=== PATIENT | female | born 1995 | race Two or more races ===

== ENCOUNTER 2019-10-22 12:28 | Emergency (ER) | payer SELFPAY ==
[2019-10-22 14:05] LABS: BLOOD UREA NITROGEN,BUN 7 mg/dL (7.0-18.0); CARBON DIOXIDE,CO2 23.7 mmol/L (21.0-32.0); CHLORIDE,CL 103 mmol/L (98-107); GLUCOSE RANDOM 78 mg/dL (74-106); POTASSIUM,K 4.2 mmol/L (3.5-5.1); SODIUM,NA 136 mmol/L (136-145)
[2019-10-22] MEDS ORDERED: Ondansetron 4 MG/2 ML SDV IVPUSH ONE (14:47)
[2019-10-22] MEDS ORDERED: Sodium Chloride 0.9% 1,000 ML IV ONE (14:47)
--- NOTE | 2019-10-22 14:50 | EDM.PDOC ---
ED HPI GENERAL MEDICAL PROBLEM - General Chief Complaint: MEDICAL BILLER CODER Problem Stated Complaint: PAIN IN STOMACH/2MNTHS Time Seen by Provider: 10/22/19 12:31 Source of Information: Reports: Patient, Family (Her boy friend interperted for me in that she only speaks swedish.) History Limitations: Reports: Language Barrier - History of Present Illness Onset: Today Duration: Improving Location: Reports: Abdomen ( left pubic area) Severity: Mild Associated Symptoms: Reports: Nausea/Vomiting (for two to three days.) lower abdominal pain Pain Score (Numeric/FACES): 6 - Related Data Allergies Allergy/AdvReac Type Severity Reaction Status Date / Time No Known Allergies Allergy Verified 10/22/19 12:43 Home Meds: Home Meds Ondansetron [Zofran ODT] 4 mg PO Q6H PRN 5 Days #20 tab.dis 10/22/19 [Rx] Past Medical History - Past Health History Medical/Surgical History: Denies Medical/Surgical History 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 (See Below) Other MEDICAL BILLER CODER History: 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-- was from an while in [place] Social & Family History - Family History Family Medical History: Noncontributory - Tobacco Use Smoking Status *Q: Never Smoker - Recreational Drug Use Recreational Drug Use: No ED ROS GENERAL - Review of Systems Review Of Systems: See Below Constitutional: Reports: No Symptoms HEENT: Reports: No Symptoms Respiratory: Reports: No Symptoms Cardiovascular: Reports: No Symptoms Endocrine: Reports: No Symptoms GI/Abdominal: Reports: Abdominal Pain : Reports: No Symptoms, Other (but does have pressure in the pubic area.) Musculoskeletal: Reports: No Symptoms Skin: Reports: No Symptoms Neurological: Reports: No Symptoms Psychiatric: Reports: No Symptoms ED EXAM - Physical Exam Exam: See Below Exam Limited By: Language Barrier (Her boy friend did all of the talking in that she only speaks spainsh.) General Appearance: Alert, WD/WN, No Apparent Distress Eye Exam: Bilateral Eye: EOMI, Normal Inspection, PERRL Ears: Normal External Exam, Normal Canal, Hearing Grossly Normal, Normal TMs Nose: Normal Inspection, Normal Mucosa, No Blood Throat/Mouth: Normal Inspection, Normal Lips, Normal Teeth, Normal Gums, Normal Oropharynx, Normal Voice, No Airway Compromise Head: Atraumatic, Normocephalic Neck: Normal Inspection, Supple, Non-Tender, Full Range of Motion Respiratory/Chest: No Respiratory Distress, Lungs Clear, Normal Breath Sounds, No Accessory Muscle Use, Chest Non-Tender Cardiovascular: Normal Peripheral Pulses, Regular Rate, Rhythm, No Edema, No Gallop, No JVD, No Murmur, No Rub GI/Abdominal Exam: Normal Bowel Sounds, Soft, No Distention, No Abnormal Bruit, No Mass, Tender (very mild tenderness in the left lower abdomen near the pubic area.) Fundal Height In cm: 0 (unable to palpate fundus of uterus.) Rectal Exam: Fecal Impaction (Female) Exam: Other (transabdominal ultrasound was done and results are pending at this time.) Heart Tones: Not Fallon Movement: Not Appreciated Back Exam: Normal Inspection, Full Range of Motion, NT Extremities: Normal Inspection, Normal Range of Motion, Non-Tender, Normal Capillary Refill, No Pedal Edema Neurological: Alert, Oriented, CN II-XII Intact, Normal Cognition, Normal Gait, Normal Reflexes, No Motor/Sensory Deficits Psychiatric: Normal Affect, Normal Mood Skin Exam: Warm, Dry, Intact, Normal Color, No Rash Lymphatic: No Adenopathy Course - Vital Signs Text/Narrative:: I discussed with the Mid-, MsVivian Young about this patient. She states that she would need to see Dr. Omer tomorrow afternoon at 1:45PM. I discussed this with her boyfriend the situation and he fully understands and has related this to Ms. Zepeda. He is aware of the follow up plan for tomorrow. Last Recorded V/S: Last Vital Signs Temp 98.3 F 10/22/19 15:10 Pulse 75 10/22/19 15:51 Resp 16 10/22/19 15:51 BP 101/56 L 10/22/19 15:10 Pulse Ox 100 10/22/19 15:51 - Orders/Labs/Meds Labs: Laboratory Tests 10/22/19 10/22/19 10/22/19 Range/Units 13:05 13:05 13:05 WBC 7.24 (4.0-11.0) K/uL RBC 3.81 L (4.30-5.90) M/uL Hgb 12.1 (12.0-16.0) g/dL Hct 35.2 L (36.0-46.0) % MCV 92.4 (80.0-98.0) fL MCH 31.8 (27.0-32.0) pg MCHC 34.4 (31.0-37.0) g/dL RDW Std Deviation 43.4 (28.0-62.0) fl RDW Coeff of Caden 13 (11.0-15.0) % Plt Count 212 (150-400) K/uL MPV 10.00 (7.40-12.00) fL Neut % (Auto) 63.1 (48.0-80.0) % Lymph % (Auto) 27.9 (16.0-40.0) % Ray % (Auto) 7.7 (0.0-15.0) % Eos % (Auto) 1.2 (0.0-7.0) % Baso % (Auto) 0.1 (0.0-1.5) % Neut # (Auto) 4.6 (1.4-5.7) K/uL Lymph # (Auto) 2.0 (0.6-2.4) K/uL Ray # (Auto) 0.6 (0.0-0.8) K/uL Eos # (Auto) 0.1 (0.0-0.7) K/uL Baso # (Auto) 0.0 (0.0-0.1) K/uL Nucleated RBC % 0.0 /100WBC Nucleated RBCs # 0 K/uL Sodium 136 (136-145) mmol/L Potassium 4.2 (3.5-5.1) mmol/L Chloride 103 (98-107) mmol/L Carbon Dioxide 23.7 (21.0-32.0) mmol/L BUN 7 (7.0-18.0) mg/dL Creatinine 0.5 L (0.6-1.0) mg/dL Est Cr Clr Drug Dosing TNP Estimated GFR (MDRD) > 60.0 ml/min Glucose 78 (74-106) mg/dL Calcium 9.1 (8.5-10.1) mg/dL Total Bilirubin 0.2 (0.2-1.0) mg/dL AST 16 (15-37) IU/L ALT 16 (14-63) IU/L Alkaline Phosphatase 46 (46-116) U/L Total Protein 7.6 (6.4-8.2) g/dL Albumin 3.8 (3.4-5.0) g/dL Globulin 3.8 (2.6-4.0) g/dL Albumin/Globulin Ratio 1.0 (0.9-1.6) HCG, Quant 17385.0 mIU/mL Urine Color Urine Appearance Urine pH (5.0-8.0) Ur Specific [place] (1.001-1.035) Urine Protein (NEGATIVE) mg/dL Urine Glucose (UA) (NEGATIVE) mg/dL Urine Ketones (NEGATIVE) mg/dL Urine Occult Blood (NEGATIVE) Urine Nitrite (NEGATIVE) Urine Bilirubin (NEGATIVE) Urine Urobilinogen (<2.0) EU/dL Ur Leukocyte Esterase (NEGATIVE) Urine HCG, Qual (NEGATIVE) Blood Type O POSITIVE 10/22/19 10/22/19 Range/Units 13:12 13:12 WBC (4.0-11.0) K/uL RBC (4.30-5.90) M/uL Hgb (12.0-16.0) g/dL Hct (36.0-46.0) % MCV (80.0-98.0) fL MCH (27.0-32.0) pg MCHC (31.0-37.0) g/dL RDW Std Deviation (28.0-62.0) fl RDW Coeff of Caden (11.0-15.0) % Plt Count (150-400) K/uL MPV (7.40-12.00) fL Neut % (Auto) (48.0-80.0) % Lymph % (Auto) (16.0-40.0) % Ray % (Auto) (0.0-15.0) % Eos % (Auto) (0.0-7.0) % Baso % (Auto) (0.0-1.5) % Neut # (Auto) (1.4-5.7) K/uL Lymph # (Auto) (0.6-2.4) K/uL Ray # (Auto) (0.0-0.8) K/uL Eos # (Auto) (0.0-0.7) K/uL Baso # (Auto) (0.0-0.1) K/uL Nucleated RBC % /100WBC Nucleated RBCs # K/uL Sodium (136-145) mmol/L Potassium (3.5-5.1) mmol/L Chloride (98-107) mmol/L Carbon Dioxide (21.0-32.0) mmol/L BUN (7.0-18.0) mg/dL Creatinine (0.6-1.0) mg/dL Est Cr Clr Drug Dosing Estimated GFR (MDRD) ml/min Glucose (74-106) mg/dL Calcium (8.5-10.1) mg/dL Total Bilirubin (0.2-1.0) mg/dL AST (15-37) IU/L ALT (14-63) IU/L Alkaline Phosphatase (46-116) U/L Total Protein (6.4-8.2) g/dL Albumin (3.4-5.0) g/dL Globulin (2.6-4.0) g/dL Albumin/Globulin Ratio (0.9-1.6) HCG, Quant mIU/mL Urine Color YELLOW Urine Appearance CLEAR Urine pH 7.5 (5.0-8.0) Ur Specific [place] 1.010 (1.001-1.035) Urine Protein NEGATIVE (NEGATIVE) mg/dL Urine Glucose (UA) NEGATIVE (NEGATIVE) mg/dL Urine Ketones NEGATIVE (NEGATIVE) mg/dL Urine Occult Blood NEGATIVE (NEGATIVE) Urine Nitrite NEGATIVE (NEGATIVE) Urine Bilirubin NEGATIVE (NEGATIVE) Urine Urobilinogen 0.2 (<2.0) EU/dL Ur Leukocyte Esterase NEGATIVE (NEGATIVE) Urine HCG, Qual POSITIVE (NEGATIVE) Blood Type Meds: Medications Discontinued Medications Generic Name Dose Route Start Last Admin Trade Name Freq PRN Reason Stop Dose Admin Sodium Chloride 1,000 mls @ 1,000 mls/hr 10/22/19 14:47 10/22/19 15:11 Normal Saline IV 10/22/19 15:46 1,000 mls/hr .Bolus ONE Administration Ondansetron HCl 4 mg 10/22/19 14:47 10/22/19 15:11 Zofran IVPUSH 10/22/19 14:48 4 mg ONETIME ONE Administration Departure - Departure Time of Disposition: 16:06 Disposition: Home, Self-Care 01 Condition: Good Clinical Impression: demise, less than 22 weeks - Discharge Information *PRESCRIPTION DRUG MONITORING PROGRAM REVIEWED*: Yes *COPY OF PRESCRIPTION DRUG MONITORING REPORT IN PATIENT MUKESH: Yes Additional Instructions: Follow up with Dr. Omer tomorrow at 1:45PM. The nurse has given you his information. Rest for the next 24 hours. Take your zofran as needed for nausea or vomiting. Return to the ED if your condition gets worse or should you have any further concerns. The following information is given to patients seen in the emergency department who are being discharged to home. This information is to outline your options for follow-up care. We provide all patients seen in our emergency department with a follow-up referral. The need for follow-up, as well as the timing and circumstances, are variable depending upon the specifics of your emergency department visit. If you don't have a primary care physician on staff, we will provide you with a referral. We always advise you to contact your personal physician following an emergency department visit to inform them of the circumstance of the visit and for follow-up with them and/or the need for any referrals to a consulting specialist. The emergency department will also refer you to a specialist when appropriate. This referral assures that you have the opportunity for follow-up care with a specialist. All of these measure are taken in an effort to provide you with optimal care, which includes your follow-up. Under all circumstances we always encourage you to contact your private physician who remains a resource for coordinating your care. When calling for follow-up care, please make the office aware that this follow-up is from your recent emergency room visit. If for any reason you are refused follow-up, please contact the [facility] Emergency Department at and asked to speak to the emergency department charge nurse. Sepsis Event Note - Evaluation Sepsis Screening Result: No Definite Risk - Focused Exam Vital Signs: Vital Signs Temp Pulse Resp BP Pulse Ox 10/22/19 15:51 75 16 100 10/22/19 15:10 98.3 F 73 16 101/56 L 99 10/22/19 12:38 98.5 F 100 16 119/78 100 Date Exam was Performed: 10/22/19 Time Exam was Performed: 16:02
--- NOTE | 2019-10-22 15:22 | US ---
1st trimester obstetrical ultrasound: Multiple real-time images were obtained transabdominally. Comparison: No prior imaging for current . Dates: Current ultrasound: [place] 03/25/20, gestational age 9 weeks 1 day Single intrauterine gestational sac is seen. pole is identified. No subchorionic hemorrhage is seen. Maternal adnexa appear within normal limits. [place]-rump length: 23.82 mm - 9 weeks 1 day Heart rate: No heart activity is identified. Impression: 1. Single intrauterine gestation. Dates as noted above. 2. pole shows no heart activity which should be visualized at this time. Findings are felt compatible with nonviable . Diagnostic code #5 This report was dictated in [place] Standard Time
== END 2019-10-22 16:39 | disposition home or self-care (01) ==
LOC: MW.ED 12:28
DX: O36.4XX0 Maternal care for intrauterine death, not applicable or unspecified (principal)
CPT/HCPCS: 36415; 76801; 80053; 81003; 81025; 84702; 85025; 86900; 86901; 96361; 96374; 99284; J2405; J7030

== ENCOUNTER 2021-11-07 07:13 | Inpatient (IN) | payer BC ==
[2021-11-07] MEDS ORDERED: Misoprostol 200 MCG Tab PO PRN (07:54)
[2021-11-07] MEDS ORDERED: Water For Irrigation,Sterile 1,000 ML Container IRR PRN (07:54)
[2021-11-07] MEDS ORDERED: Sodium Chloride 0.9% 2.5 ML Syringe FLUSH PRN (07:54)
[2021-11-07] MEDS ORDERED: Misoprostol 25 MCG (1/4 of 100 MCG) Tab VAG PRN (07:54)
[2021-11-07] MEDS ORDERED: Terbutaline 1 MG/ML SDV SUBCUT PRN (07:54)
[2021-11-07] MEDS ORDERED: Sodium Chloride 0.9% 10 ML Syringe FLUSH PRN (07:54)
[2021-11-07] MEDS ORDERED: Carboprost Tromethamine 250 MCG/1 ML Amp IM PRN (07:54)
[2021-11-07] MEDS ORDERED: Sodium Chloride 0.9% 20 ML SDV IV PRN (07:54)
[2021-11-07] MEDS ORDERED: Tranexamic Acid 1,000 MG in Sodium Chloride 0.9% 100 ML IV PRN (07:54)
[2021-11-07] MEDS ORDERED: Methylergonovine 0.2 MG/1 ML Amp IM PRN (07:54)
[2021-11-07] MEDS ORDERED: Butorphanol 1 MG/ML SDV IVPUSH PRN (07:54)
[2021-11-07] MEDS ORDERED: Lidocaine 1% 50 ML MDV INJECT PRN (07:54)
[2021-11-07] MEDS ORDERED: Misoprostol 25 MCG (1/4 of 100 MCG) Tab PO ONE ×3 (07:57→16:04)
[2021-11-07] MEDS ORDERED: Oxytocin/0.9 % Sodium Chloride 30 UNIT/500 ML BAG IV SCH ×2 (08:00)
[2021-11-07] MEDS: Lactated Ringers 1,000 ML IV SCH ×2 (08:25→17:18)
[2021-11-07] MEDS: Misoprostol 25 MCG (1/4 of 100 MCG) Tab VAG PRN ×2 (08:25→16:14)
[2021-11-07] MEDS: Nalbuphine 10 MG/1 ML Vial IVPUSH PRN ×2 (16:14→20:45)
[2021-11-08] MEDS ORDERED: Ropivacaine HCl/PF 100 ML ONE (00:31)
[2021-11-08] MEDS ORDERED: ePHEDrine 50 MG/ML SDV IVPUSH PRN (00:47)
[2021-11-08] MEDS ORDERED: Ropivacaine HCl/PF 200 MG in Premix Bag 1 BAG EPIDUR SCH (01:00)
[2021-11-08] MEDS: Lactated Ringers 1,000 ML IV SCH (01:30)
[2021-11-08] MEDS ORDERED: Ondansetron 4 MG/2 ML SDV ONE (09:04)
[2021-11-08] MEDS ORDERED: Ondansetron 4 MG/2 ML SDV IVPUSH ONE (09:09)
[2021-11-08] MEDS ORDERED: Ibuprofen 400 MG Tab PO PRN (10:42)
[2021-11-08] MEDS ORDERED: Bisacodyl 10 MG Supp RECTAL PRN (10:42)
[2021-11-08] MEDS ORDERED: Benzocaine/Menthol 20%-0.5% Spray 78 GM Cannister TOP PRN (10:42)
[2021-11-08] MEDS ORDERED: Witch Hazel Medicated Pads 40/Jar TOP PRN (10:42)
[2021-11-08] MEDS ORDERED: Acetaminophen 500 MG Tab PO PRN ×2 (10:42)
[2021-11-08] MEDS ORDERED: Lanolin 100% Cream 7 GM Tube TOP PRN (10:42)
[2021-11-08] MEDS ORDERED: Morphine 2 MG/ML SYRINGE ONE (11:22)
[2021-11-08] MEDS ORDERED: Morphine 2 MG/ML SYRINGE IVPUSH PRN (11:30)
[2021-11-08] MEDS: Ibuprofen 800 MG Tab PO PRN ×2 (11:50→20:57)
[2021-11-08] MEDS: Docusate Sodium 100 MG Cap PO PRN (20:57)
[2021-11-09] MEDS: Docusate Sodium 100 MG Cap PO PRN ×2 (09:02→20:56)
[2021-11-09] MEDS: Ibuprofen 800 MG Tab PO PRN (09:02)
[2021-11-10] MEDS: Ibuprofen 800 MG Tab PO PRN (02:05)
== END 2021-11-10 23:59 | disposition home or self-care (01) | DRG 560 ==
LOC: MW.OBCHECK 07:13 → MW.OB 07:15 → MW.OBCHECK 07:54 → OBSVTOIN 11-08 10:43 → MW.OB 11-08 16:00
PROVIDERS: ADMIT Obstetrics & Gynecology Obstetrics; ATTEND Obstetrics & Gynecology Obstetrics
PROC: 10E0XZZ Delivery of Products of Conception, External Approach (ICD-10-PCS; principal; 2021-11-08)
PROC: 3E0R3BZ Introduction of Anesthetic Agent into Spinal Canal, Percutaneous Approach (ICD-10-PCS; 2021-11-08)
PROC: 00HU33Z Insertion of Infusion Device into Spinal Canal, Percutaneous Approach (ICD-10-PCS; 2021-11-08)
DX: O69.81X0 Labor and delivery complicated by cord around neck, without compression, not applicable or unspecified (principal); Z37.0 Single live birth; O77.0 Labor and delivery complicated by meconium in amniotic fluid; O36.5930 Maternal care for other known or suspected poor fetal growth, third trimester, not applicable or unspecified; Z3A.39 39 weeks gestation of pregnancy; Z20.822 Contact with and (suspected) exposure to COVID-19
CPT/HCPCS: 01967; 36415; 59025; 59409; 85014; 85018; 85027; 86592; 86850; 86900; 86901; A9270-GY; J2270; J2300; J2405; J2590; J2795; J7120; U0002